=== PATIENT | female | born 1965 | race Two or more races ===

== ENCOUNTER → 2017-10-20 | Day surgery (SDC) | payer OTHER ==
--- NOTE | 2017-10-22 09:21 | PATH ---
Cytology Non-Gynecological Report Patient Name: KIMBERLI DE LUNA [facility]. Rec. #: [id number] /Age/Gender: 1965 (Age: 52) / F Account: [id number] Location: RADIOLOGY Taken: 10/20/2017 Received: 10/20/2017 Reported: 10/22/2017 Physicians: Beverly Pitts M.D. Specimen(s) Received THYROID FNA RIGHT Clinical History Right thyroid nodule, 1.30 x 1.16 x 0.82 cm Final Diagnosis THYROID, RIGHT, FINE NEEDLE ASPIRATION: UNSATISFACTORY FOR EVALUATION. BETHESDA CLASS I: CYSTIC LESION WITH MACROPHAGES (NON-DIAGNOSTIC). RARE FOLLICULAR CELLS IN A BACKGROUND OF FEW MACROPHAGES AND THIN COLLOID PRESENT. Comment: The specimen has insufficient follicular cell clusters and/or colloid; and suboptimal for complete cytopathologic evaluation according to [employer] [facility] System for Reporting Thyroid FNA. If the nodule has worrisome ultrasound imaging properties, a repeat FNA, would be appropriate. Electronically Signed Aileen Sharma M.D. Gross Description Received are eight direct smears, four of which are air-dried and Diff-Quik stained, and four of which are alcohol fixed and Pap stained. Also received is 20 ml of bloody formalin from which one cellblock is prepared.
== END | disposition home or self-care (01) ==
LOC: JRADIR 08:34
PROVIDERS: ATTEND Internal Medicine
PROC: 0G9H3ZX Drainage of Right Thyroid Gland Lobe, Percutaneous Approach, Diagnostic (ICD-10-PCS; principal; 2017-10-20)
DX: E04.1 Nontoxic single thyroid nodule (principal)
CPT/HCPCS: 76942

== ENCOUNTER 2018-03-09 13:57 | Emergency (ER) | payer OTHER ==
[2018-03-09 14:15] VITALS: BMI 28.3
[2018-03-09] MEDS ORDERED: ACETAMINOPHEN 325 MG TABLET (FP) ONE (14:39)
[2018-03-09] MEDS ORDERED: ACETAMINOPHEN 325 MG TABLET (FP) PO ONE (14:43)
[2018-03-09] MEDS ORDERED: ALBUTEROL SO4 2.5/IPRATROPIUM 0.5 INH SOL 3 ML VIAL.NEB. NEB ONE ×2 (15:15→18:10)
[2018-03-09] MEDS ORDERED: SODIUM CHLORIDE 0.9% 500 ML INFUS.BAG IV ONE (15:29)
--- NOTE | 2018-03-09 16:12 | PDOC ---
History of Present Illness - General Chief Complaint: Respiratory Stated Complaint: FEVER Time Seen by Provider: 03/09/18 16:11 - History of Present Illness Initial Comments: 03/09/18 18:20 The patient is a 53-year-old female, with a past medical history of asthma, acid reflux, and HIV (per pt, CD4 in , VL UD, compliant with HAART), who was sent to the ED from Dr. Dilcia Pandas office to rule out pneumonia. The patient is complaining of global gradual onset headache, productive cough, b /l ear pain, throat pain, nasal and chest congestion. The patient was noted to have a fever of 101 at the office and 99 in the ED. She reports taking Tylenol for pain. The patient denies any nausea, vomiting, diarrhea, dysuria, frquency, hematuria , or abdominal pain. Denies shortness of breath, CP, or palpitations. Allergies: Sulfa PCP: Dr. Dilcia Panda Past History - Past Medical History Allergies/Adverse Reactions: Allergies Allergy/AdvReac Type Severity Reaction Status Date / Time Sulfa (Sulfonamide Allergy Rash Verified 02/08/16 11:12 Antibiotics) [Sulfa(Sulfonamide Antibiotics)] Home Medications: Ambulatory Orders Montelukast Na [Singulair -] 10 mg PO DAILY 03/11/15 Rosuvastatin Calcium [Crestor] 10 mg PO DAILY 03/11/15 Albuterol Sulfate Inhaler - [Ventolin Hfa Inhaler -] 1 - 2 inh PO TID 03/09/18 Emtricita/Rilpivirine/Tenof Df [Complera Tablet] 1 each PO DAILY 03/09/18 Omeprazole 40 mg PO DAILY 03/09/18 Paroxetine HCl [Paxil -] 30 mg PO DAILY 03/09/18 Ranitidine [Zantac -] 150 mg PO DAILY 03/09/18 Anemia: No Asthma: Yes Cancer: No Cardiac Disorders: No CVA: No COPD: No CHF: No Dementia: No Diabetes: No GI Disorders: Yes (ACID REFLUX) Disorders: No HTN: No Hypercholesterolemia: No Liver Disease: No Seizures: No Thyroid Disease: No - Surgical History Abdominal Surgery: No Appendectomy: No Cardiac Surgery: No Cholecystectomy: No Lung Surgery: No Neurologic Surgery: No Orthopedic Surgery: No - Suicide/Smoking/Psychosocial Hx Smoking Status: No Smoking History: Current every day smoker Have you smoked in the past 12 months: Yes Number of Cigarettes Smoked Daily: 10 Information on smoking cessation initiated: No 'Breaking Loose' booklet given: 03/12/15 Hx Alcohol Use: No Drug/Substance Use Hx: No Substance Use Type: None Hx Substance Use Treatment: No Review of Systems - Review of Systems Comments:: 03/09/18 18:20 GENERAL/CONSTITUTIONAL: (+)Fever. No chills. No weakness. HEAD, EYES, EARS, NOSE AND THROAT: (+)sore throat, ear pain, nasal congestion. No change in vision. No ear discharge. GASTROINTESTINAL: No nausea, vomiting, diarrhea or constipation. GENITOURINARY: No dysuria, frequency, or change in urination. CARDIOVASCULAR: (+)chest congestion. No shortness of breath. RESPIRATORY: (+)cough. No wheezing, or hemoptysis. MUSCULOSKELETAL: No joint or muscle swelling or pain. No neck or back pain. SKIN: No rash NEUROLOGIC: (+)Headache. No vertigo, loss of consciousness, or change in strength/sensation. ENDOCRINE: No increased thirst. No abnormal weight change. HEMATOLOGIC/LYMPHATIC: No anemia, easy bleeding, or history of blood clots. ALLERGIC/IMMUNOLOGIC: No hives or skin allergy. *Physical Exam - Vital Signs Last Vital Signs Temp Pulse Resp BP Pulse Ox 99.9 F H 95 H 20 119/63 98 03/09/18 14:05 03/09/18 14:05 03/09/18 14:05 03/09/18 14:05 03/09/18 14:05 - Physical Exam Comments: 03/09/18 18:20 GENERAL: Awake, alert, and fully oriented, in no acute distress HEAD: No signs of trauma EYES: PERRLA, EOMI, sclera anicteric, conjunctiva clear ENT: Auricles normal inspection, hearing grossly normal, nares patent, oropharynx mildly erythematous posteriorly but otherwise clear without exudates. Moist mucosa NECK: Normal ROM, supple, no lymphadenopathy, JVD, or masses LUNGS: Breath sounds equal, clear to auscultation bilaterally. No wheezes, and no crackles HEART: Regular rate and rhythm, normal S1 and S2, no murmurs, rubs or gallops ABDOMEN: Soft, nontender, normoactive bowel sounds. No guarding, no rebound. No masses EXTREMITIES: Normal range of motion, no edema. No clubbing or cyanosis. No cords , erythema, or tenderness BACK: No midline spinal tenderness in cervical/thoracic/lumbar region NEUROLOGICAL: Normal speech, cranial nerves intact, negative pronator drift, 5/ 5 strength in all 4 extremities, normal sensation to light touch in all 4 extremities, normal cerebellar exam, normal gait, normal reflexes and tone SKIN: Warm, Dry, normal turgor, no rashes or lesions noted. ED Treatment Course - LABORATORY CBC & Chemistry Diagram: 03/09/18 17:40 03/09/18 17:40 - Medications Given in the ED: ED Medications Discontinued Medications Generic Name Dose Route Start Last Admin Trade Name Freq PRN Reason Stop Dose Admin Acetaminophen 650 mg 03/09/18 14:43 03/09/18 14:44 Tylenol - PO 03/09/18 14:44 650 mg NOW ONE Administration Medical Decision Making - Medical Decision Making 03/09/18 18:21 53yo F hx MMP including well controlled HIV presnts to the ED from Dr. Panda's office for evaluation for fever, headache, ear pain, sore throat, cough, nasal and chest congestion. Vitals wnl. Exam unremarkable, likely viral URI. WIll check labs, CXR and reassess. Case discussed with Dr. Panda, if pt feels better and labs/XR wnl, pt can be DC. 03/09/18 19:23 Labs, CXR wnl. Pt feels much better, requests DC home. Instructed her to f/u with her PMD Dr. Panda within 1-2 days and return to the ED if any new, worsening, or concerning symptoms. I discussed the physical exam findings, ancillary test results and final diagnoses with the patient. I answered all of the patient's questions. The patient was satisfied with the care received and felt comfortable with the discharge plan and treatment plan. The patient will call their primary care physician within 24 hours to arrange follow-up and will return to the Emergency Department with any new, persistent or worsening symptoms. *DC/Admit/Observation/Transfer Diagnosis at time of Disposition: Fever - Discharge Dispostion Disposition: HOME Condition at time of disposition: Stable Decision to Admit order: No - Referrals Referrals: Dilcia Panda MD [Primary Care Provider] - - Patient Instructions Additional Instructions: Follow up with Dr. Panda within 1-2 days. Stay hydrated and drink plenty of fluids. Return to the emergency department if you have any new, worsening or concerning symptoms. - Post Discharge Activity - Attestations Physician Attestion: 03/09/18 19:27 I, Dr. Anjum Asencio MD, attest that this document has been prepared under my direction and personally reviewed by me in its entirety. I further attest, that it accurately reflects all work, treatment, procedures and medical decision -making performed by me.
[2018-03-09] MEDS ORDERED: KETOROLAC TROMETHAMINE 15 MG/ML VIAL IVPUSH ONE (16:56)
[2018-03-09] MEDS ORDERED: KETOROLAC TROMETHAMINE 15 MG/ML VIAL ONE (16:59)
[2018-03-09] MEDS ORDERED: METOCLOPRAMIDE HCL INJECTION 10 MG/2 ML VIAL ONE (17:01)
[2018-03-09 17:46] LABS: BASO % 0.9 % (0-2.0); EOS % 0.4 % (0-4.5); HEMATOCRIT 38.8 % (32.4-45.2); LYMPH % 23.6 % (8-40); MCH 30.9 pg (25.7-33.7); MCHC 33.5 g/dl (32.0-36.0); MEAN CELL VOLUME 92.3 fl (80-96); MEAN PLT VOLUME 8.3 fl (7.5-11.1); MONO % 7.4 % (3.8-10.2); NEUT % 67.7 % (42.8-82.8); PLATELET COUNT 240 K/MM3 (134-434); RBC 4.21 M/mm3 (3.60-5.2); RDW 12.8 % (11.6-15.6); WHITE BLOOD COUNT 10.6 K/mm3 (4.0-10.0)
[2018-03-09] MEDS ORDERED: METOCLOPRAMIDE HCL INJECTION 10 MG/2 ML VIAL IVPUSH ONE (18:09)
[2018-03-09 18:13] LABS: ALBUMIN 3.1 g/dl (3.4-5.0); ALK PHOS 66 U/L (45-117); ANION GAP 8 (8-16); BILIRUBIN,TOTAL 0.3 mg/dL (0.2-1.0); BLOOD UREA NITROGEN 8 mg/dL (7-18); CALCIUM 8.5 mg/dL (8.5-10.1); CHLORIDE 108 mmol/L (98-107); CO2 26 mmol/L (21-32); CREATININE 0.8 mg/dL (0.55-1.02); GLUCOSE,RANDOM 110 mg/dL (74-106); POTASSIUM 3.2 mmol/L (3.5-5.1); SGOT/AST 14 U/L (15-37); SGPT/ALT 24 U/L (12-78); SODIUM 142 mmol/L (136-145); TOT PROT 6.3 g/dl (6.4-8.2)
[2018-03-09 18:27] VITALS: BP 103/54; PULSE 74; TEMP 99.1
[2018-03-09] MEDS ORDERED: SODIUM CHLORIDE 1,000 ML IV STA (18:28)
[2018-03-09] MEDS ORDERED: POTASSIUM CHLORIDE ORAL LIQUID 20 MEQ/15 ML PO ONE (18:47)
[2018-03-09] MEDS ORDERED: POTASSIUM CHLORIDE ORAL LIQUID 20 MEQ/15 ML ONE (19:05)
[2018-03-09] MEDS ORDERED: AZITHROMYCIN 250 MG TABLET PO ONE (19:27)
[2018-03-09] MEDS ORDERED: AZITHROMYCIN 250 MG TABLET ONE (19:30)
== END 2018-03-09 19:41 | disposition home or self-care (01) ==
LOC: JER 13:57
PROC: 3E0337Z Introduction of Electrolytic and Water Balance Substance into Peripheral Vein, Percutaneous Approach (ICD-10-PCS; principal; 2018-03-09)
PROC: 3E033GC Introduction of Other Therapeutic Substance into Peripheral Vein, Percutaneous Approach (ICD-10-PCS; 2018-03-09)
PROC: 3E0333Z Introduction of Anti-inflammatory into Peripheral Vein, Percutaneous Approach (ICD-10-PCS; 2018-03-09)
PROC: 3E0F7GC Introduction of Other Therapeutic Substance into Respiratory Tract, Via Natural or Artificial Opening (ICD-10-PCS; 2018-03-09)
DX: R50.9 Fever, unspecified (principal); F17.210 Nicotine dependence, cigarettes, uncomplicated; J45.909 Unspecified asthma, uncomplicated
CPT/HCPCS: 36415; 71046-TC-FY; 80053; 84484; 85025; 99282-25; J7030; J7620

== ENCOUNTER 2022-03-31 14:08 | Emergency (ER) | payer OTHER ==
[2022-03-31 14:27] VITALS: BP 107/69; PULSE 86; TEMP 97.9; BMI 27.4
== END 2022-03-31 14:25 | disposition left against medical advice (07) ==
LOC: JERFT 14:08
DX: M79.604 Pain in right leg (principal)
CPT/HCPCS: 99281-25